=== PATIENT | female | born 1930 | race Caucasian/White ===

== ENCOUNTER 2017-07-01 13:17 | Inpatient (IN) | payer OTHER ==
[~2017-07-01] VITALS: Ht 134.6 cm; Wt 54.3 kg
[~2017-07-01 13:17] MED LIST: ADULT LOW STREN81 M2; ALLOPURINOL100 MG PO; ALLOPURINOL300 MG PO; ANTIVERT25 MG PO; CARDURA2 M1 PO; CARDURA2 MG PO; CARVEDILOL25 MG; CIPRO250 MG; CLARITIN10 M3; COREG12.5 M1 PO; COREG25 M1 PO; CRESTOR10 MG PO; Coreg PO; DOXAZOSIN MESYLA2 MG PO; FEOSOL325 MG PO; FOSAMAX70 MG PO; Fosamax PO; GLUCOPHAGE500 MG; HYDROCHLOROTHIA25 MG; LASIX20 MG PO; LEVAQUIN500 MG PO; LOW DOSE ASPIRI81 M1 PO; NEURONTIN100 MG PO; PRINIVIL40 MG; TRAMADOL HCL50 MG; ULTRAM50 MG PO; VALIUM5 MG PO; ZEMPLAR1 MCG; ZEMPLAR1 MCG PO; Zemplar PO
[2017-07-01 14:53] LABS: HEMATOCRIT 27.9 % (36.0-46.0); HEMOGLOBIN 9.5 G/DL (11.9-15.5); MCH 33.9 PG (29.0-34.0); MCHC 34.1 G/DL (30.0-36.0); MCV 99.6 FL (83-99); PLATELET COUNT 211 K/uL (156-360); RBC DIS.WIDTH-CV 15.2 % (11.8-14.6); RBC DIS.WIDTH-SD 55.8 % (39-53); WHITE BLOOD COUNT 21.4 K/uL (4.1-10.2)
[2017-07-01 15:03] LABS: ALBUMIN 3.7 g/dL (3.2-4.8)
[2017-07-01 15:04] LABS: CHLORIDE 107 mEq/L (99-109); POTASSIUM 3.9 mEq/L (3.7-5.4); SODIUM 136 mEq/L (136-147)
[2017-07-01 15:06] LABS: GLUCOSE 83 mg/dL (70-99); TOTAL PROTEIN 7.2 g/dL (6.4-8.3)
[2017-07-01 15:08] LABS: TOTAL BILIRUBIN 0.3 mg/dL (0.0-1.0)
[2017-07-01 15:09] LABS: ALKALINE PHOSPHATASE 45 IU/L (3-129)
[2017-07-01 15:10] LABS: CREATININE 4.1 mg/dL (0.6-1.3); GFR ESTIMATE (CALCULATED) 11 mL/min/
[2017-07-01 15:11] LABS: AST (GOT) 32 IU/L (2-34); UREA NITROGEN (BUN) 90 mg/dL (9-23)
[2017-07-01 15:12] LABS: ALT (GPT) 24 IU/L (3-49)
[2017-07-01 16:11] LABS: APPEARANCE SL.HAZY ((CLEAR)); BILIRUBIN NEGATIVE; BLOOD MODERATE; COLOR YELLOW ((YELLOW)); GLUCOSE (STRIP) NEGATIVE; KETONES NEGATIVE; LEUKOCYTES NEGATIVE; NITRITE NEGATIVE; PROTEIN (STRIP) 30; SPECIFIC GRAVITY 1.009 (1.000-1.030); UROBILINOGEN 0.2 MG/DL (0.2-1.0)
[2017-07-01 16:20] LABS: BACTERIA RARE /HPF; EPITHELIAL CELLS RARE /HPF; HYALINE CASTS 0-5 /LPF; MUCUS TRACE /LPF; RED BLOOD CELLS 0-5 /HPF (0-5); WHITE BLOOD CELLS 0-5 /HPF (0-5)
[2017-07-01] MEDS ORDERED: PLAVIX75 MG PO (16:35)
[2017-07-01] MEDS ORDERED: COZAAR100 MG PO (16:35)
[2017-07-01] MEDS ORDERED: REQUIP0.5 MG PO (16:36)
[2017-07-01] MEDS ORDERED: ZOFRAN4 MG PO (16:40)
[2017-07-01] MEDS ORDERED: ILEVRO1.7 ML RIGHT EYE (16:47)
[2017-07-01] MEDS ORDERED: DUREZOL 0.100 DROP/5 RIGHT EYE (16:47)
[2017-07-01 19:20] VITALS: BP 110/57
[2017-07-02 00:46] VITALS: BP 109/53
[2017-07-02 06:50] VITALS: BP 112/55
[2017-07-02 07:16] LABS: BASOPHIL (%) 0.2 % (0-1); EOSINOPHIL (%) 0 % (0-5); HEMATOCRIT 24.7 % (36.0-46.0); HEMOGLOBIN 8.2 G/DL (11.9-15.5); IMMATURE GRANULOCYTE (%) 1.4 % (0.0-0.7); LYMPHOCYTE (%) 5.8 % (15-42); LYMPHOCYTE COUNT 0.7 K/uL (1.0-2.8); MCH 33.1 PG (29.0-34.0); MCHC 33.2 G/DL (30.0-36.0); MCV 99.6 FL (83-99); MONOCYTE COUNT 0.2 K/uL (0-0.8); NEUTROPHIL (%) 90.6 % (45-76); NEUTROPHIL COUNT 10.7 K/uL (1.8-6.4); PLATELET COUNT 214 K/uL (156-360); RBC DIS.WIDTH-CV 15.2 % (11.8-14.6); RBC DIS.WIDTH-SD 55.1 % (39-53); RED BLOOD COUNT 2.48 M/uL (3.80-5.20); WHITE BLOOD COUNT 11.8 K/uL (4.1-10.2)
[2017-07-02 07:44] LABS: CHLORIDE 111 MEQ/L (99-109); POTASSIUM 3.9 MEQ/L (3.7-5.4); SODIUM 139 MEQ/L (136-147); UREA NITROGEN (BUN) 74 mg/dL (9-23)
[2017-07-02 07:51] LABS: CREATININE 3.4 MG/DL (0.6-1.3); GFR ESTIMATE (CALCULATED) 14 mL/min/; GLUCOSE 166 mg/dL (70-99)
[2017-07-02 10:50] LABS: HEMOGLOBIN A1c (GLYCOHEMOGLOB) 5.5 % (Below 5.7)
[2017-07-02 11:00] VITALS: BP 144/60
[2017-07-02 15:30] VITALS: BP 136/58
[2017-07-02 19:03] VITALS: BP 137/63
[2017-07-03 01:06] VITALS: BP 127/66
[2017-07-03 04:59] VITALS: BP 144/58
[2017-07-03 05:49] LABS: BASOPHIL (%) 0.1 % (0-1); EOSINOPHIL (%) 0.1 % (0-5); HEMATOCRIT 24.2 % (36.0-46.0); IMMATURE GRANULOCYTE (%) 1.7 % (0.0-0.7); LYMPHOCYTE (%) 10.9 % (15-42); LYMPHOCYTE COUNT 1.5 K/uL (1.0-2.8); MCH 32.7 PG (29.0-34.0); MCHC 33.1 G/DL (30.0-36.0); MCV 98.8 FL (83-99); MONOCYTE (%) 8.4 % (3-12); MONOCYTE COUNT 1.1 K/uL (0-0.8); NEUTROPHIL (%) 78.8 % (45-76); NEUTROPHIL COUNT 10.5 K/uL (1.8-6.4); PLATELET COUNT 218 K/uL (156-360); RBC DIS.WIDTH-CV 14.9 % (11.8-14.6); RED BLOOD COUNT 2.45 M/uL (3.80-5.20); WHITE BLOOD COUNT 13.3 K/uL (4.1-10.2)
[2017-07-03 06:55] LABS: CHLORIDE 110 MEQ/L (99-109); CREATININE 3.1 MG/DL (0.6-1.3); GFR ESTIMATE (CALCULATED) 15 mL/min/; GLUCOSE 129 mg/dL (70-99); POTASSIUM 3.7 MEQ/L (3.7-5.4); SODIUM 139 MEQ/L (136-147); UREA NITROGEN (BUN) 63 mg/dL (9-23)
[2017-07-03 07:35] VITALS: BP 143/68
[2017-07-03 11:00] VITALS: BP 119/60
[2017-07-03 15:25] VITALS: BP 155/69
[2017-07-03 20:28] VITALS: BP 154/70
[2017-07-04 00:09] VITALS: BP 138/68
[2017-07-04 05:44] LABS: HEMOGLOBIN 7.9 G/DL (11.9-15.5); MCH 32.8 PG (29.0-34.0); MCHC 32.9 G/DL (30.0-36.0); MCV 99.6 FL (83-99); PLATELET COUNT 204 K/uL (156-360); RBC DIS.WIDTH-CV 15.1 % (11.8-14.6); RBC DIS.WIDTH-SD 54.9 % (39-53); RED BLOOD COUNT 2.41 M/uL (3.80-5.20); WHITE BLOOD COUNT 11.2 K/uL (4.1-10.2)
[2017-07-04 06:34] LABS: CHLORIDE 114 MEQ/L (99-109); GFR ESTIMATE (CALCULATED) 23 mL/min/; GLUCOSE 106 mg/dL (70-99); POTASSIUM 3.7 MEQ/L (3.7-5.4); SODIUM 142 MEQ/L (136-147); UREA NITROGEN (BUN) 48 mg/dL (9-23)
[2017-07-04 06:38] LABS: CREATININE 2.2 MG/DL (0.6-1.3)
[2017-07-04 07:30] VITALS: BP 145/70
[2017-07-04 11:18] VITALS: BP 151/65
[2017-07-04 16:15] VITALS: BP 149/68
[2017-07-04 19:41] VITALS: BP 139/71
[2017-07-04 23:23] VITALS: BP 143/82
[2017-07-05 05:58] LABS: HEMATOCRIT 23.9 % (36.0-46.0); HEMOGLOBIN 7.8 G/DL (11.9-15.5); MCH 32.8 PG (29.0-34.0); MCHC 32.6 G/DL (30.0-36.0); MCV 100.4 FL (83-99); PLATELET COUNT 207 K/uL (156-360); RBC DIS.WIDTH-CV 15.2 % (11.8-14.6); RBC DIS.WIDTH-SD 55.5 % (39-53); RED BLOOD COUNT 2.38 M/uL (3.80-5.20); WHITE BLOOD COUNT 11.4 K/uL (4.1-10.2)
[2017-07-05 06:21] LABS: CHLORIDE 116 MEQ/L (99-109); CREATININE 1.8 MG/DL (0.6-1.3); GFR ESTIMATE (CALCULATED) 28 mL/min/; GLUCOSE 100 mg/dL (70-99); POTASSIUM 4.1 MEQ/L (3.7-5.4); SODIUM 143 MEQ/L (136-147); UREA NITROGEN (BUN) 41 mg/dL (9-23)
[2017-07-05] MEDS ORDERED: DUONEB 2.5-0.5 M3 ML AEROSOL (11:50)
[2017-07-05] MEDS ORDERED: CEFTIN500 MG PO (11:50)
[2017-07-05] MEDS ORDERED: PREDNISONE10 MG PO (11:52)
[2017-07-05] MEDS ORDERED: PROVENTIL HFA6.7 GM IH (16:00)
== END 2017-07-05 13:56 | disposition home or self-care (01) | DRG 871 ==
LOC: EME 13:17 → 5EAST 16:41 → EDOF 16:41 → ENRESERV 16:43 → 5EAST 18:21
PROVIDERS: Emergency Medicine; Hospitalist; Internal Medicine; Physician Assistant
DX: A41.9 Sepsis, unspecified organism (principal); J96.01 Acute respiratory failure with hypoxia; J18.9 Pneumonia, unspecified organism; R65.20 Severe sepsis without septic shock; I70.90 Unspecified atherosclerosis; M48.061 Spinal stenosis, lumbar region without neurogenic claudication; Z66 Do not resuscitate; I25.10 Atherosclerotic heart disease of native coronary artery without angina pectoris; I10 Essential (primary) hypertension; M06.9 Rheumatoid arthritis, unspecified; I12.9 Hypertensive chronic kidney disease with stage 1 through stage 4 chronic kidney disease, or unspecified chronic kidney disease; K44.9 Diaphragmatic hernia without obstruction or gangrene; E83.52 Hypercalcemia; M54.9 Dorsalgia, unspecified; K21.9 Gastro-esophageal reflux disease without esophagitis; E11.22 Type 2 diabetes mellitus with diabetic chronic kidney disease; N18.3 Chronic kidney disease, stage 3 (moderate); E11.36 Type 2 diabetes mellitus with diabetic cataract; M54.6 Pain in thoracic spine; K57.30 Diverticulosis of large intestine without perforation or abscess without bleeding; E78.5 Hyperlipidemia, unspecified; E86.0 Dehydration; N17.9 Acute kidney failure, unspecified; Z95.1 Presence of aortocoronary bypass graft; Z79.82 Long term (current) use of aspirin; Z79.899 Other long term (current) drug therapy; Z82.0 Family history of epilepsy and other diseases of the nervous system; Z79.83 Long term (current) use of bisphosphonates; Z86.73 Personal history of transient ischemic attack (TIA), and cerebral infarction without residual deficits; Z88.1 Allergy status to other antibiotic agents
CPT/HCPCS: 71046; 72128; 72131; 74176; 80048; 80053; 81003; 83036; 83605; 85025; 85027; 87040; 87070; 87086; 87205; 87449; 87502; 93005; 94640 76; 97530 GP; 99202; 99281; 99285; J0456; J0696; J1644; J7030; J7512